=== PATIENT | female | born 1970 | race Two or more races ===

== ENCOUNTER 2016-09-01 10:46 | Emergency (ER) | payer OTHER ==
[~2016-09-01] VITALS: Ht 157.5 cm; Wt 52.6 kg
--- NOTE | 2016-09-01 11:12 | NUR ---
er md at the bedside for eval and exam.
[2016-09-01] MEDS ORDERED: MORPHINE SULFATE 4 MG/1 ML DISP.SYRIN IM ONE (11:15)
[2016-09-01 11:26] LABS: HEMOGLOBIN 11.2 g/dL (12.0-16.0); RED CELL DISTRIBUTION WIDTH 12.8 % (11.5-14.5)
[2016-09-01 11:28] LABS: HEMATOCRIT 33.8 % (37.0-47.0); MEAN CORPUSCULAR HEMOGLOBIN 28.1 uug (27.0-31.0); MEAN CORPUSCULAR HGB CONC 33 g/dL (32.0-37.0); MEAN CORPUSCULAR VOLUME 84.8 fL (81.0-99.0); PLATELET COUNT (AUTO) 184 K/uL (150-450); RED BLOOD CELL COUNT(AUTO) 3.98 MIL/uL (4.20-5.40); WHITE BLOOD COUNT (AUTO) 4.4 K/uL (4.0-11.2)
[2016-09-01] MEDS ORDERED: MORPHINE SULFATE 2 MG/1 ML DISP.SYRIN ONE (11:28)
[2016-09-01] MEDS ORDERED: MORPHINE SULFATE 4 MG/1 ML DISP.SYRIN ONE (11:29)
[2016-09-01 11:31] LABS: CALCIUM 8.5 mg/dL (8.5-10.1); CREATININE 0.7 mg/dL (0.6-1.3); POTASSIUM 4.5 mmol/L (3.5-5.1)
[2016-09-01 11:38] LABS: *BILIRUBIN,URIN NEGATIVE (NEGATIVE); *BLOOD, URINE 2+ (NEGATIVE); *CLARITY,URINE CLEAR (CLEAR); *COLOR,URINE YELLOW (YELLOW); *KETONES,URINE NEGATIVE (NEGATIVE); *PROTEIN,URINE NEGATIVE (NEGATIVE); *UROBILINOGEN,URINE 0.2 E.U./dl (NORMAL); LEUKOCYTE ESTERASE ,URINE NEGATIVE (NEGATIVE); NITRITE, URINE NEGATIVE (NEGATIVE); PH,URINE 5.5 (5.0-8.0); UGLUCOSE NEGATIVE (NEGATIVE)
[2016-09-01 11:53] LABS: *URINE HCG, QUAL NEGATIVE (NEGATIVE)
[2016-09-01 11:58] LABS: BACTERIA,URINE NONE SEEN /HPF (NONE SEEN); SQUAMOUS EPITHELIAL CELL,UR MODERATE /HPF (NONE SEEN)
[2016-09-01 12:13] VITALS: BP 120/66
--- NOTE | 2016-09-01 12:14 | NUR ---
Patient discharged to home in stable conditon. Written and verbal after care instructions given. Patient verbalizes understanding of instructions. pt left er w/ steady gait accomapained by family.
== END 2016-09-01 12:15 | disposition home or self-care (01) ==
LOC: ER 10:49
DX: M54.5 Low back pain (principal); R55 Syncope and collapse
CPT/HCPCS: 36415; 80048; 81001; 84703; 85025; 93005; 96372; 99285; A4663; J2270 ×2

== ENCOUNTER 2018-06-02 22:03 | Emergency (ER) | END 2018-06-03 00:33 | disposition home or self-care (01) | DX: R10.13 Epigastric pain (principal); R94.5 Abnormal results of liver function studies | CPT/HCPCS: 36415; 71045; 76700; 80048; 80076; 81001; 83690; 84484; 84703; 85025; 85730; 93005 ×2; 96374; 96375; 99284; J2270; J2405 ==

== ENCOUNTER 2018-06-04 12:14 | Emergency (ER) | END 2018-06-04 13:18 | disposition home or self-care (01) | DX: R51 Headache (principal); R42 Dizziness and giddiness | CPT/HCPCS: 84703; 93005; 96372 ×2; 99284; J1885; J2060 ==

== ENCOUNTER → 2022-10-23 | Emergency (ER) | payer SELFPAY | END | disposition left against medical advice (07) | LOC: ER 13:57 | DX: Z53.21 Procedure and treatment not carried out due to patient leaving prior to being seen by health care provider (principal) ==